=== PATIENT | female | born 1960 | race Caucasian/White ===

== ENCOUNTER 2020-08-31 17:04 | Emergency (ER) | payer BC, OTHER ==
[2020-08-31] MEDS ORDERED: Ondansetron ODT 4 MG TAB ONE (18:18)
[2020-08-31] MEDS ORDERED: HYDROcodone/Acetaminophen 5/325 mg Tablet ONE (18:18)
== END 2020-08-31 19:11 | disposition home or self-care (01) ==
LOC: CSHERS 17:04
DX: S06.0X0A Concussion without loss of consciousness, initial encounter (principal); S30.0XXA Contusion of lower back and pelvis, initial encounter; W01.10XA Fall on same level from slipping, tripping and stumbling with subsequent striking against unspecified object, initial encounter
CPT/HCPCS: 70450; 72170; Q0162